=== PATIENT | female | born 1960 | race Caucasian/White ===

== ENCOUNTER 2018-01-11 09:59 | Outpatient (CLI) | payer OTHER | END 2018-01-11 10:00 | disposition home or self-care (01) | LOC: BICMAMMO 09:59 | PROVIDERS: ATTEND Internal Medicine Hematology & Oncology | DX: N63.42 Unspecified lump in left breast, subareolar (principal); N64.59 Other signs and symptoms in breast; C79.51 Secondary malignant neoplasm of bone; Z85.3 Personal history of malignant neoplasm of breast; Z80.3 Family history of malignant neoplasm of breast; Z14.8 Genetic carrier of other disease; N64.89 Other specified disorders of breast | CPT/HCPCS: G0279 ==

== ENCOUNTER 2018-01-14 13:50 | Outpatient (CLI) | payer OTHER | END 2018-01-14 13:51 | disposition home or self-care (01) | LOC: BICMAMMO 13:50 | PROVIDERS: ATTEND Specialist | DX: Z48.89 Encounter for other specified surgical aftercare (principal); Z98.890 Other specified postprocedural states | CPT/HCPCS: G0279 ==

== ENCOUNTER 2018-01-18 10:06 | Outpatient (CLI) | payer OTHER ==
[2018-01-18] MEDS ORDERED: ISOVUE-370 76%-LOCM 1 ML ONE (11:01)
== END 2018-01-18 10:07 | disposition home or self-care (01) ==
LOC: BICCT 10:06
PROVIDERS: ATTEND Internal Medicine Medical Oncology
DX: C50.912 Malignant neoplasm of unspecified site of left female breast (principal); C79.51 Secondary malignant neoplasm of bone
CPT/HCPCS: 71260; 74177

== ENCOUNTER 2018-01-19 17:19 | Outpatient (CLI) | payer OTHER ==
[2018-01-19 17:33] LABS: #Eosinphils 0.1 thou/uL (0.0-0.7); #Lymphocytes 1.3 thou/uL (1.20-3.40); #Monocytes 0.8 thou/uL (0.11-0.59); #Neutrophils 4.7 thou/uL (1.40-6.50); %Basophils 0.3 % (0.0-1.0); %Eosinophils 1.6 % (0.0-10.0); %Lymphocytes 18.9 % (21.0-51.0); %Monocytes 11.2 % (0.0-10.0); Hemoglobin 15.1 g/dL (12.0-16.0); Mean Corpuscular HGB CONC 34.7 g/dL (32.0-36.0); Mean Corpuscular Hemoglobin 35.3 pg (27.0-31.0); Mean Platelet Volume 6.5 fL (7.4-10.4); Platelet Count 230 thou/uL (130-400); RBC Distribution Width 11.7 % (11.5-14.5); Red Blood Cell (RBC) Count 4.28 mill/uL (4.20-5.40); White Blood Cell (WBC) Count 6.9 thou/uL (4.8-10.8)
[2018-01-19 18:04] LABS: Anion Gap 12 mmol/L (10-20); BUN (Urea Nitrogen) 14 mg/dL (9.8-20.1); Calc. Creatinine Clearance 0 mL/min (70-130); Carbon Dioxide 27 mmol/L (22-29); Chloride 104 mmol/L (98-107); Estimated GFR-MDRD 71; Glucose 99 mg/dL (70-105); Sodium 138 mmol/L (136-145)
== END 2018-01-19 17:20 | disposition home or self-care (01) ==
LOC: LABBT 17:19
PROVIDERS: ATTEND Specialist
DX: Z01.818 Encounter for other preprocedural examination (principal); C50.912 Malignant neoplasm of unspecified site of left female breast
CPT/HCPCS: 80048; 85025; 93005; 93010

== ENCOUNTER 2018-01-25 07:18 | Inpatient (IN) | payer OTHER ==
[2018-01-25] MEDS ORDERED: Isosulfan Blue 50 MG/5 ML VIAL ONE (09:15)
[2018-01-25] MEDS ORDERED: Bupivacaine/Epinephrine 0.25% 30 ML VIAL ONE (09:15)
[2018-01-25] MEDS ORDERED: Midazolam HCl 2 mg/2 ml Vial ONE (09:18)
[2018-01-25] MEDS ORDERED: Fentanyl 250 MCG/5 ML VIAL ONE (09:18)
--- NOTE | 2018-01-25 09:26 | NM ---
LEFT BREAST LYMPHOSCINTIGRAPHY: HISTORY: Malignant neoplasm of unspecified site of the left female breast. RADIOPHARMACEUTICAL: 400 mCi Technetium 99m filtered sulfur colloid injected in the left periareolar left breast in divide d doses. FINDINGS: Planar images of the head, chest, and axilla were obtained. There are foci of increased uptake in th e left axilla. No tracer localization is seen in the region of the right axillary or either internal mammary lymph node change. IMPRESSION: [place] lymph node (S) in the left axilla. POS: ANN
[2018-01-25] MEDS ORDERED: CEFAZOLIN/Water 2 GM/20 ML SYRINGE ONE (09:36)
[2018-01-25] MEDS ORDERED: Ketorolac Tromethamine 30 MG/ML VIAL ONE (09:42)
[2018-01-25] MEDS ORDERED: Fentanyl 100 MCG/2 ML VIAL ONE ×2 (12:47→14:59)
[2018-01-25] MEDS ORDERED: Promethazine HCl 25 MG/ML VIAL SLOW IVP PRN (14:11)
[2018-01-25] MEDS ORDERED: PACU-Morphine 4MG/ML VIAL SLOW IVP PRN (14:11)
[2018-01-25] MEDS ORDERED: Promethazine HCl 25 MG/ML VIAL IM PRN ×2 (14:11→16:39)
[2018-01-25] MEDS ORDERED: Ondansetron HCl/PF 4 MG/2 ML Vial IVP PRN (14:11)
[2018-01-25] MEDS ORDERED: Glycopyrrolate 0.2 MG/ML 5 ML SYRINGE ONE (16:18)
[2018-01-25] MEDS ORDERED: Lidocaine 1% PF 5 ML VIAL ONE (16:18)
[2018-01-25] MEDS ORDERED: Metoclopramide HCl 10 MG/2 ML VIAL ONE (16:18)
[2018-01-25] MEDS ORDERED: Ondansetron PF 4 MG/2 ML Vial ONE (16:18)
[2018-01-25] MEDS ORDERED: PHENYLEPHRINE-NS 100 MCG/ML 10 ML SYRINGE ONE (16:18)
[2018-01-25] MEDS ORDERED: PROPOFOL 200 MG/20 ML VIAL ONE (16:18)
[2018-01-25] MEDS ORDERED: hydrALAZINE 20 MG/ML VIAL SLOW IVP PRN (16:39)
[2018-01-25] MEDS ORDERED: Ondansetron PF 4 MG/2 ML Vial IVP PRN (16:39)
[2018-01-25] MEDS ORDERED: HYDROcodone/Acetaminophen 7.5/325 mg Tablet PO PRN (16:39)
[2018-01-25] MEDS ORDERED: Dextrose 5% in Water 1,000 ML IV PRN (16:39)
[2018-01-25] MEDS ORDERED: Dextrose 50% Abboject 50 ML SYRINGE SLOW IVP PRN (16:39)
[2018-01-25] MEDS ORDERED: Morphine 4 MG/ML VIAL SLOW IVP PRN (17:00)
[2018-01-25] MEDS: Morphine 4 MG/ML VIAL SLOW IVP PRN (17:06)
[2018-01-25] MEDS: Lactated Ringer's 1,000 ML IV SCH (17:07)
[2018-01-25] MEDS: Famotidine 20 MG TAB PO SCH (21:04)
[2018-01-25] MEDS: HYDROcodone/Acetaminophen 7.5/325 mg Tablet PO PRN (21:11)
[2018-01-26] MEDS: Morphine 4 MG/ML VIAL SLOW IVP PRN (01:10)
[2018-01-26] MEDS: HYDROcodone/Acetaminophen 7.5/325 mg Tablet PO PRN ×3 (04:28→13:35)
[2018-01-26] MEDS: Lactated Ringer's 1,000 ML IV SCH (04:29)
[2018-01-26 05:46] LABS: #Eosinphils 0.1 thou/uL (0.0-0.7); #Lymphocytes 1.2 thou/uL (1.20-3.40); #Monocytes 0.7 thou/uL (0.11-0.59); #Neutrophils 5.5 thou/uL (1.40-6.50); %Basophils 0.3 % (0.0-1.0); %Eosinophils 0.7 % (0.0-10.0); %Lymphocytes 15.6 % (21.0-51.0); %Monocytes 9.3 % (0.0-10.0); %Neutrophils 74.1 % (42.0-75.0); Hemoglobin 11.9 g/dL (12.0-16.0); Mean Corpuscular HGB CONC 34.2 g/dL (32.0-36.0); Mean Corpuscular Hemoglobin 35.3 pg (27.0-31.0); Mean Platelet Volume 6.7 fL (7.4-10.4); Platelet Count 162 thou/uL (130-400); RBC Distribution Width 11.9 % (11.5-14.5); Red Blood Cell (RBC) Count 3.37 mill/uL (4.20-5.40); White Blood Cell (WBC) Count 7.4 thou/uL (4.8-10.8)
[2018-01-26] MEDS: Famotidine 20 MG TAB PO SCH (11:00)
[2018-01-26 11:48] VITALS: BP 186/85; TEMP 98.3
--- NOTE | 2018-01-27 14:06 | OP ---
DATE OF PROCEDURE: 01/25/2018 PREOPERATIVE DIAGNOSIS: Left breast cancer. POSTOPERATIVE DIAGNOSIS: Left breast cancer. OPERATION PERFORMED: Bilateral simple mastectomy with left axillary sentinel lymph node biopsy. SURGEON: Layton García M.D. ANESTHESIA: General endotracheal. INDICATIONS: The patient is a 58-year-old female. About 3 years ago, she was diagnosed with a stage IV left breast cancer, which had metastasized to the bones of her spine. She was treated with chemo therapy and hormonal therapy. She never had completion treatment of her breast. She recently had ph ysical and mammographic changes in her left breast and was diagnosed with a new/recurrent lesion with in the left breast. This has been confirmed to be a malignancy with a breast profile very similar to her previous breast cancer. I have recommended a left mastectomy. After discussing options with th e patient regarding bilateral versus unilateral surgery and reconstruction versus no reconstruction, she has decided to proceed with a bilateral mastectomy with no reconstruction. DESCRIPTION OF OPERATION: Informed consent was obtained. The patient initially was taken to the [facility] medicine suite where lymphoscintigraphy was performed revealing left axillary sentinel lymph nod es. She was then taken to the operating room where general endotracheal anesthesia was obtained with the patient in supine position. Bilateral breast and axilla were prepped with ChloraPrep and draped in sterile fashion. Attention was turned first to the left breast. The patient had a tattoo on her upper left breast. I therefore fashioned a semi-elliptical incision across her left breast to spare her tattoo. I created the lateral portion of the incision and dissected through skin and subcutaneo us tissue. Prior to doing this, the left periareolar tissue was infiltrated with 2.5 mL of Lymphazur in and massaged for five minutes. Dissection was carried down to the left axilla. Neoprobe was util ized to identify areas of maximum radio intensity. I was able to identify 3 separate sentinel lymph nodes. Two of these had blue dye whilst the third one did not. These were each identified, dissecte d circumferentially and divided between clamps and 3-0 silk ties. Intraoperative touch prep revealed no definite evidence of malignancy. Attention was then turned to the right breast. Elliptical right breast incision was created includin g the nipple areolar complex. Flaps were raised superiorly, inferiorly and medially and carried down to the chest wall. The breast was then dissected off the chest wall in a medial to lateral fashion. The patient had very large breasts (approximately a G cup). There was extensive redundant skin and breast tissue. Consciously, I did not dissect into the axilla and removed the breast as well as the extensive fatty tissue lateral to the breast in continuity with the breast and passed this off the f ield. I then spent a lengthy amount of time tailoring the skin flaps to try to minimize redundant sk in at the time of closure. Due to the large area of dissection, I placed two separate 19-Kinyarwanda roun d fluted drains, one in the superior aspect of the breast and one inferiorly. These were each sy t out laterally and secured with 3-0 nylon suture. The wound was then closed in layers using 3-0 Panda ryl and skin uche. Dog ear deformity was corrected medially and laterally. Attention was turned to the right breast. On the right breast, the incision that had been started pr eviously was completed. Again, skin flaps were created and the breast was mobilized in the fashion s imilar to the right. Again, no attempt was made to dissect axillary contents and the breast was alivia whitney just lateral to the pectoral muscles. Specimen was passed off the field. Drains were placed and again, skin edges were tailored. The tattoo on the upper left breast was preserved. After the uche were placed on the left, Xeroform gauze dressings were placed across the incisions as well as gauze, fluffs and an Jez wrap. Sterile occlusive dressings were placed over the drain exi t sites. There were no complications. Blood loss was minimal. The patient tolerated the procedure well and was taken to Recovery Room in stable condition.
== END 2018-01-26 13:39 | disposition home or self-care (01) | DRG 580 ==
LOC: SDC 07:18 → 3SE 14:03
PROVIDERS: ADMIT Specialist; ATTEND Specialist
PROC: 0HTV0ZZ Resection of Bilateral Breast, Open Approach (ICD-10-PCS; principal; 2018-01-25)
PROC: 07B60ZX Excision of Left Axillary Lymphatic, Open Approach, Diagnostic (ICD-10-PCS; 2018-01-25)
DX: C50.312 Malignant neoplasm of lower-inner quadrant of left female breast (principal); C79.51 Secondary malignant neoplasm of bone; Z17.0 Estrogen receptor positive status [ER+]; Z40.01 Encounter for prophylactic removal of breast
CPT/HCPCS: 36415; 78195; 85025; 88307; 88333; 88334; 88342; 96374; A9541; J0131; J1642; J1885; J2001; J2250; J2270; J2405; J2704; J2765; J3010; Q9968

== ENCOUNTER 2018-01-31 09:56 | Outpatient (CLI) | payer OTHER ==
--- NOTE | 2018-01-31 15:45 | NM ---
WHOLE BODY BONE SCAN: Date: 01/31/18 HISTORY: Neoplasm of lower outer quadrant of left female breast. RADIOPHARMACEUTICAL: 29 mCi technetium-99m MDP injected intravenously. CORRELATION; CT chest, abdomen, and pelvis dated 01/18/18. FINDINGS: Focus of increased uptake in the right maxilla is consistent with periodontal disease. Increased upta ke in the shoulders, feet, and right wrist are consistent with degenerative changes. Focally increase d uptake to the right of midline in the lower lumbar spine corresponds to the degenerative changes se en on CT scan. No other abnormal areas of tracer localization are seen in the skeleton to suggest oss eous metastasic disease. Tracer excretion through the kidneys is within normal limits. IMPRESSION: No scintigraphic evidence of osseous metastatic disease. POS: ANN
== END 2018-01-31 09:57 | disposition home or self-care (01) ==
LOC: NM 09:56
PROVIDERS: ATTEND Internal Medicine Medical Oncology
DX: C50.512 Malignant neoplasm of lower-outer quadrant of left female breast (principal)
CPT/HCPCS: 78306; A9503

== ENCOUNTER 2018-04-14 09:12 | Outpatient (CLI) | payer OTHER ==
--- NOTE | 2018-04-15 12:00 | PET ---
PET CT: HISTORY: 58-year-old female with breast cancer, with bone mets. Patient's last treatment with Herceptin was in July 2016. Exam requested for restaging. TECHNIQUE: PET scanning with CT attenuation correction was performed from the base of the brain through the prox imal thighs following the intravenous administration of 10.4 mCi F18-FDG in the right antecubital fos sa. Imaging was performed after an uptake interval of 53 minutes. COMPARISON: PET CT dated 02/08/[address] [facility] [address] and Diagnostic CT. CORRELATION: CT chest/abdomen/pelvis of 01/18/18 and whole body bone scan of 01/31/18. FINDINGS: No sourav hypermetabolism is seen in the neck, chest, axillae, abdomen, or pelvis. No hypermetabolic p ulmonary nodules, liver, adrenal, or skeletal lesions are seen. There is physiologic activity in the GI and tracts. The CT scan used for attenuation correction demonstrates no evidence of pleural effusions or ascites. IMPRESSION: No evidence of metastatic disease. POS: ANN
== END 2018-04-14 09:13 | disposition home or self-care (01) ==
LOC: PET 09:12
PROVIDERS: ATTEND Internal Medicine Hematology & Oncology
DX: C79.51 Secondary malignant neoplasm of bone (principal); C50.919 Malignant neoplasm of unspecified site of unspecified female breast
CPT/HCPCS: 78815; A9552

== ENCOUNTER 2018-06-23 14:31 | Outpatient (CLI) | payer OTHER ==
--- NOTE | 2018-06-23 15:56 | ULT ---
FOCUSED ULTRASOUND OF BILATERAL UPPER CHEST WALL 06/23/18 COMPARISON: None. CORRELATION: Correlation is made to recent PET CT performed 04/14/18. HISTORY: Areas of pain and soft tissue prominence in the upper lateral aspect of the chest. Relatively recent prior mastectomy bilaterally. FINDINGS: Focused ultrasound in the area of palpable concern is obtained bilaterally. On the right, the patient reports an area of soft tissue (bulging) as well as altered sensation and scattered areas of pain. S onographic assessment of this region demonstrates no discrete mass lesion. There is mild hazy decreas ed echogenicity along the superolateral aspect of the right chest wall which is felt to be postoperat melvina in nature when correlated with recent PET CT. In a similar location of the left chest wall/postoperative site, there is an ill-defined somewhat st ellate area of decreased echogenicity which is felt to most likely represent scar and possibly small volume residual fluid, as seen on recent PET CT. IMPRESSION: Nonspecific areas of decreased echogenicity in the areas of palpable concern. These are felt to most likely be on the basis of postoperative change when correlated with recent PET CT. No suspicious mass or lymphadenopathy. No significant fluid collection is seen. The patient reports that she is schedul ed for a repeat PET CT in July 2018 during which time these areas will be better assessed. If the re is any interval change when compared to those studies, a repeat ultrasound could be performed. POS: OFF
== END 2018-06-23 14:32 | disposition home or self-care (01) ==
LOC: BICULT 14:31
PROVIDERS: ATTEND Internal Medicine Hematology & Oncology
DX: C50.512 Malignant neoplasm of lower-outer quadrant of left female breast (principal); C79.51 Secondary malignant neoplasm of bone; Z14.8 Genetic carrier of other disease; Z98.890 Other specified postprocedural states
CPT/HCPCS: 76999

== ENCOUNTER 2018-08-18 09:11 | Outpatient (CLI) | payer OTHER ==
--- NOTE | 2018-08-18 12:28 | PET ---
PET WITH CT SKULL TO MID THIGH: CLINICAL INDICATIONS: Breast cancer with history of bone metastases. COMPARISON: Reference to made to an 04/14/[address] exam. RADIOPHARMACEUTICAL: Fluorine 18 fluorodeoxyglucose 12 millicuries IV mixed with 10 mL of 0.9% sodium chloride. BIODISTRIBUTION: There is appropriate biodistribution of radiotracer activity. FINDINGS: There is no evidence of a hypermetabolic mass of the neck, chest, abdomen, or pelvis. No hypermetabo lic adenopathy is seen. Evaluation of the thoracolumbar spine does not reveal a hypermetabolic osseo us lesion of the vertebral column. CT evaluation of the pulmonary parenchyma reveals no evidence of mass or effusion. There are scatter ed, patchy, subpleural, ground glass opacities, as well as interspersed interstitial opacities, which could be on the basis of a component of respiratory motion artifact, atelectasis, and/or scar. Ther e is prominent pericardial fat deposition. A faint nodular contour of the liver is present, which ma y relate to a cirrhotic morphology, incompletely evaluated on the basis of this exam. There is mild vascular calcification. Incidental note of a calcified fibroid uterus. There are a few scattered co lonic diverticula. A right venous chest port is in place with the tip at the SVC. IMPRESSION: No scintigraphic evidence of metastatic disease. POS: ANN
== END 2018-08-18 09:12 | disposition home or self-care (01) ==
LOC: PET 09:11
PROVIDERS: ATTEND Internal Medicine Hematology & Oncology
DX: C50.919 Malignant neoplasm of unspecified site of unspecified female breast (principal)
CPT/HCPCS: 78815; A9552

== ENCOUNTER 2019-02-07 08:21 | Outpatient (CLI) | payer OTHER ==
--- NOTE | 2019-02-07 13:04 | PET ---
PET CT: 02/07/19 HISTORY: 59-year-old female with breast cancer and bone mets. Last chemotherapy was in July 2017. The exam was requested for restaging. TECHNIQUE: PET scan with CT attenuation correction was performed from the base of the brain to the proximal thig hs following the intravenous administration of 10.6 millicuries of technetium of 15-fluorodeoxyglucos e in the left antecubital fossa. COMPARISON: 08/18/18. FINDINGS: No sourav hypermetabolism is seen in the neck, chest, axillae, abdomen or pelvis. No hypermetabolic pu lmonary nodules, liver, adrenal or skeletal lesions are seen. There is physiologic activity in the GI and tracts and the visualized portions of the brain. The CT scan used for attenuation correction demonstrates no evidence of pleural effusions or ascites. There is continued ground glass opacities in the lungs, uterine fibroid and colonic diverticulosis. IMPRESSION: No evidence of metastatic disease. POS: ANN
== END 2019-02-07 08:22 | disposition home or self-care (01) ==
LOC: PET 08:21
PROVIDERS: ATTEND Internal Medicine Hematology & Oncology
DX: C50.919 Malignant neoplasm of unspecified site of unspecified female breast (principal); C79.51 Secondary malignant neoplasm of bone
CPT/HCPCS: 78815; A9552

== ENCOUNTER 2019-08-31 11:52 | Outpatient (CLI) | payer OTHER ==
[2019-08-31] MEDS ORDERED: Iopamidol-370 76% 500 ML 1 ML ONE (13:40)
--- NOTE | 2019-08-31 14:37 | CT ---
CT OF THE CHEST, ABDOMEN AND PELVIS WITH IV CONTRAST INDICATION: History of breast cancer COMPARISON: PET/CT dated February 07, 2019 FINDINGS: CHEST: Lungs: No suspicious pulmonary nodule, pleural effusion or pneumothorax is evident. There is subsegme ntal volume loss involving both lung bases. Pleural space: No effusion. Mediastinum: There are mild vascular calcifications involving the thoracic aorta. Axilla: No pathologically enlarged lymph nodes. ABDOMEN: Lung bases: Clear Liver: No focal lesion. Gallbladder: Normal appearing. Pancreas: Normal. Adrenal glands: Normal. Spleen: Tiny hypodensity within the lower pole of the spleen is stable. Suspicious for small cyst. Th is was likely present on a PET/CT dated 04/14/2018. Kidneys and ureters: Normal. No hydronephrosis. Vasculature: There are mild vascular calcifications seen involving the visualized vasculature. Lymph nodes:No lymphadenopathy. Free fluid in abdomen:No free fluid is evident. PELVIS: Small and large bowel: Colonic diverticulosis Appendix:Not definitely seen Bladder: Normal. Rectal and perirectal soft tissues:Normal. Reproductive structures: Fibroid uterus Free fluid in pelvis: No free fluid is evident. Lymphadenopathy pelvis: No lymphadenopathy is evident. Osseous structures: No acute osseous abnormality. No destructive osteolytic or osteoblastic lesion i s identified. There is scattered degenerative and osteoarthritic changes. Soft tissues:There is postprocedural change of bilateral mastectomy. IMPRESSION: 1. No CT evidence to suggest presence of metastatic disease in the chest, abdomen or pelvis. 2. Stable small hypodensity within the lower pole the spleen suspicious for tiny cyst. 3. Colonic diverticulosis 4. Fibroid uterus
== END 2019-08-31 11:53 | disposition home or self-care (01) ==
LOC: BICCT 11:52
PROVIDERS: ATTEND Internal Medicine Hematology & Oncology
DX: C50.512 Malignant neoplasm of lower-outer quadrant of left female breast (principal); C79.51 Secondary malignant neoplasm of bone; K57.30 Diverticulosis of large intestine without perforation or abscess without bleeding; D25.9 Leiomyoma of uterus, unspecified; D73.89 Other diseases of spleen; Z14.8 Genetic carrier of other disease
CPT/HCPCS: 71260; 74177; Q9967

== ENCOUNTER 2020-02-29 09:37 | Outpatient (CLI) | payer OTHER ==
--- NOTE | 2020-02-29 10:46 | CT ---
CT of the chest, abdomen, and pelvis: 03/10/2020 COMPARISON: 08/31/2019 HISTORY: Breast cancer, evaluate for metastatic disease TECHNIQUE: Axial CT imaging at 5 mm intervals from thoracic inlet through pubic symphysis with IV and oral contrast. Coronal and sagittal reformatted imaging obtained FINDINGS: No axillary, hilar, or mediastinal lymphadenopathy. Vascular structures of the chest appear patent. No discrete pulmonary parenchymal nodule on either side. No pleural, pericardial, or mediastinal fluid. Stable nonspecific sclerotic focus within the right humeral head measuring less than a centimeter in size. Significant multilevel thoracic spine degenerative change within the mid thoracic spine and the lower thoracic spine. There is a subcentimeter sclerotic focus within the T11 vertebral body and the T7 vertebral body, stable when compared to the prior exam. No free intraperitoneal air or fluid. The hepatic parenchyma is relatively hypodense and the peripheral contour of the liver is slightly ir regular. Findings are similar when compared to studies dating back to 01/18/2018. Findings suggest chronic hepatocellular disease, possibly on the basis of cirrhotic change and/or steatosis. No discre te focal liver lesion identified. Tiny hypodense lesion noted within the spleen, stable as well. Hyperdense material within the gallbladder fundus suggest stable stones or sludge. Adrenal glands and kidneys unremarkable. Lobulated fibroid uterus again noted. Mild sigmoid diverticulosis without evidence for diverticulitis . No evidence for bowel inflammatory change or obstruction. No retroperitoneal, pelvic, or mesenteric lymphadenopathy. Vascular structures of abdomen and pelvis appear patent. Multilevel lower lumbar spine facet hypertrophic change. Disc space narrowing, degenerative endplate change, and vacuum disc formation at L4-5 and L5-S1. Subcentimeter sclerotic focus noted within the L3 vertebral body, stable when compared to multiple prior examinations. There is a small fat-containing umbilical hernia. IMPRESSION: Stable CT examination of the chest, abdomen, and pelvis demonstrating no evidence for act melvina metastatic disease.
--- NOTE | 2020-02-29 13:40 | NM ---
WHOLE BODY BONE SCAN: HISTORY: Malignant neoplasm of lower outer quadrant of the left female breast RADIOPHARMACEUTICAL: 30 mCi technetium 99m-MDP injected intravenously COMPARISON:01/31/2018 CORRELATION: CT chest, abdomen and pelvis from today FINDINGS: Increased uptake in the spine, shoulders, elbows, wrists, knees, ankles and feet is consistent with d egenerative changes. No other abnormal areas of tracer localization are seen in the skeleton to suggest metastatic disease . Tracer excretion through the kidneys is within normal limits. IMPRESSION: No scintigraphic evidence of osseous metastatic disease.
== END 2020-02-29 09:38 | disposition home or self-care (01) ==
LOC: CT 09:37
PROVIDERS: ATTEND Internal Medicine Hematology & Oncology
DX: C50.512 Malignant neoplasm of lower-outer quadrant of left female breast (principal); C79.51 Secondary malignant neoplasm of bone
CPT/HCPCS: 71260; 74177; 78306; 82565; A9503

== ENCOUNTER 2020-08-30 07:54 | Outpatient (CLI) | payer OTHER ==
--- NOTE | 2020-08-30 10:54 | CT ---
CT of the chest, abdomen, and pelvis: 08/30/2020 COMPARISON: 02/29/2020 HISTORY: Breast cancer with osseous metastatic disease TECHNIQUE: Axial CT imaging at 5 mm intervals from the thoracic inlet through the pubic symphysis wit h intravenous and oral contrast. Coronal and sagittal reformatted imaging of the chest, abdomen, and pelvis provided. FINDINGS: CT chest: No axillary, mediastinal, or hilar lymphadenopathy is seen. There is mild atherosclerotic calcification involving the aortic arch. The vascular structures of the chest appear otherwise unremarkable. The patient is status post bilateral mastectomy. No pneumothorax is noted on either side. There is no discrete pulmonary parenchymal mass lesion or nodule noted on either side. Mild increased linear interstitial density is noted within the inferior medial aspect of the right lo wer lobe. No endobronchial lesion is evident. There is a punctate sclerotic focus within the right humeral head which is unchanged when compared to studies dating back to 2018. The osseous structures demonstrate a stable degree of scattered degenerative change within the thoracic spine and incompletely imaged lower cervical spine. No manubr ial or sternal lesion is seen. No discrete worrisome lytic or blastic bone lesion is seen within the chest. CT of the abdomen/pelvis: No free intraperitoneal air or fluid. The hepatic parenchyma is diffusely h ypodense suggesting hepatic steatosis. The peripheral contour of the liver is mildly irregular, a stable finding. Hyperdensity within the gallbladder fundus suggest stones and/or sludge. No discrete focal liver lesion identified. Stable subcentimeter hypodense lesion within the spleen noted. The pancreas, adrenal glands, and kidneys demonstrate no acute findings. There are lobulated areas of increased density within the uterus, some of which demonstrate calcifica tion, suggesting uterine fibroid disease. There is no evidence for bowel inflammatory change or obstruction. The vascular structures of the abdomen/pelvis appear patent. No abdominal or pelvic lymphadenopathy. Review of the osseous structures demonstrate multilevel lower lumbar spine degenerative change, most prominent at the L4-5 and the L5-S1 level. IMPRESSION: Stable CT examination of the chest, abdomen, and pelvis. No evidence for metastatic disea se is appreciated.
--- NOTE | 2020-08-30 12:18 | NM ---
Exam: Irregular medicine whole body bone scan COMPARISON: 02/29/2020 Correlation: Chest abdomen pelvis CT 08/30/2020 TECHNIQUE: Patient was administered 31.20 mCi of technetium 99m MDP intravenously. After 3 hour delay , whole body imaging is performed FINDINGS: Physiologic distribution of radiotracer. There is stable uptake in the shoulders, feet and wrists due to degenerative change. Additionally, there is stable uptake in the thoracic and lumbar spine also on the basis of degenerative change. No scintigraphic evidence of osseous metastases IMPRESSION: No scintigraphic evidence of osseous metastases.
[2020-08-30] MEDS ORDERED: Iopamidol 370 76% 100 ML VIAL ONE (13:19)
== END 2020-08-30 07:55 | disposition home or self-care (01) ==
LOC: CT 07:54
PROVIDERS: ATTEND Internal Medicine Hematology & Oncology
DX: C50.512 Malignant neoplasm of lower-outer quadrant of left female breast (principal); C79.51 Secondary malignant neoplasm of bone
CPT/HCPCS: 71260; 74177; 78306; 82565; A9503; Q9967

== ENCOUNTER 2021-02-21 14:47 | Outpatient (CLI) | payer OTHER | END 2021-02-21 14:48 | disposition home or self-care (01) | LOC: BICMAMMO 14:47 | PROVIDERS: ATTEND Internal Medicine Hematology & Oncology | DX: Z13.820 Encounter for screening for osteoporosis (principal); M85.851 Other specified disorders of bone density and structure, right thigh; M85.852 Other specified disorders of bone density and structure, left thigh; Z78.0 Asymptomatic menopausal state; Z79.811 Long term (current) use of aromatase inhibitors | CPT/HCPCS: 77080 ==

== ENCOUNTER → 2021-04-15 | Outpatient (CLI) | payer OTHER | LOC: SCSMRI 09:45 | PROVIDERS: ATTEND Orthopaedic Surgery | DX: M25.511 Pain in right shoulder (principal); M75.101 Unspecified rotator cuff tear or rupture of right shoulder, not specified as traumatic; M25.411 Effusion, right shoulder ==

== ENCOUNTER 2021-05-01 15:10 | Outpatient (CLI) | payer OTHER ==
[2021-05-02 14:32] LABS: SARS-CoV-2 PCR by NAA Not Detected (NotDetected)
== END 2021-05-01 15:11 | disposition home or self-care (01) ==
LOC: LABBT 15:10
PROVIDERS: ATTEND Internal Medicine Gastroenterology
DX: Z01.812 Encounter for preprocedural laboratory examination (principal); Z12.11 Encounter for screening for malignant neoplasm of colon; Z20.822 Contact with and (suspected) exposure to COVID-19
CPT/HCPCS: U0003; U0005

== ENCOUNTER 2021-05-06 05:39 | Day surgery (SDC) | payer OTHER ==
[2021-05-05 12:11] VITALS: BMI 28.1
[2021-05-06] MEDS ORDERED: Lidocaine 1% PF 5 ML VIAL ONE (08:44)
[2021-05-06] MEDS ORDERED: PROPOFOL 200 MG/20 ML VIAL ONE (08:44)
== END 2021-05-06 09:44 | disposition home or self-care (01) ==
LOC: SDC 05:39
PROVIDERS: ATTEND Internal Medicine Gastroenterology
PROC: 0DBL8ZX Excision of Transverse Colon, Via Natural or Artificial Opening Endoscopic, Diagnostic (ICD-10-PCS; principal; 2021-05-06)
DX: Z12.11 Encounter for screening for malignant neoplasm of colon (principal); K63.5 Polyp of colon; K57.30 Diverticulosis of large intestine without perforation or abscess without bleeding; K62.89 Other specified diseases of anus and rectum; I10 Essential (primary) hypertension; E78.5 Hyperlipidemia, unspecified; K21.9 Gastro-esophageal reflux disease without esophagitis; Z85.3 Personal history of malignant neoplasm of breast; Z87.891 Personal history of nicotine dependence; Z80.0 Family history of malignant neoplasm of digestive organs; Z79.811 Long term (current) use of aromatase inhibitors; Z79.82 Long term (current) use of aspirin; Z79.899 Other long term (current) drug therapy
CPT/HCPCS: 88305; J2704

== ENCOUNTER 2022-03-20 07:28 | Outpatient (CLI) | payer OTHER | END 2022-03-20 07:29 | disposition home or self-care (01) | LOC: CT 07:28 | PROVIDERS: ATTEND Internal Medicine Hematology & Oncology | DX: C50.512 Malignant neoplasm of lower-outer quadrant of left female breast (principal); C79.51 Secondary malignant neoplasm of bone; R94.8 Abnormal results of function studies of other organs and systems; Z14.8 Genetic carrier of other disease | CPT/HCPCS: 71260; 74177; 78306; A9503 ==

== ENCOUNTER 2023-04-09 08:22 | Outpatient (CLI) | payer MEDICARE, OTHER ==
[2023-04-09] MEDS ORDERED: Iopamidol 370 76% 100 ML VIAL ONE (11:05)
== END 2023-04-09 08:23 | disposition home or self-care (01) ==
LOC: CT 08:22
PROVIDERS: ATTEND Internal Medicine Hematology & Oncology
DX: C50.512 Malignant neoplasm of lower-outer quadrant of left female breast (principal); C79.51 Secondary malignant neoplasm of bone; Z14.8 Genetic carrier of other disease
CPT/HCPCS: 71260; 74177; 78306; 82565; A9503; Q9967